=== PATIENT | female | born 1985 | race African-American/Black ===

== ENCOUNTER 2021-11-07 03:14 | Emergency (ER) | payer MEDICAID, SELFPAY ==
--- NOTE | ~2021-11-07 | XR_ITS ---
EXAMINATION: XR CHEST CLINICAL INFORMATION: Cough COMPARISON: 05/01/2021 TECHNIQUE: Frontal view of the chest was obtained. FINDINGS: The lungs are clear with no focal consolidation. No evidence of pneumothorax, pulmonary edema, or pleural effusions. The cardiomediastinal silhouette is unremarkable. No acute osseous findings. XR/XR chest 1V IMPRESSION: No acute cardiopulmonary findings.
[2021-11-07 03:34] VITALS: BP 137/80; PULSE 105; RESP 16; O2SAT 98; BMI 29.5
[2021-11-07 03:58] LABS: COVID-19 Test Positive (Negative); IDNOW Serial# 9DD0AD1C
--- NOTE | 2021-11-07 05:39 | ED.GENADULT ---
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 The patient has cough so hard that she has had 1 episode of dry heaving. She denies any diarrhea. She has had some headache and throat discomfort. She did have a recent positive COVID test but then had a negative test. She notes that she lives in [place] but has been working up here and has been looking into moving appear. She states she does not have transportation to get back to [place] and she wonders how she will quarantine Related Data Allergies Allergy/AdvReac Type Severity Reaction Status Date / Time No Known Allergies Allergy Verified 11/07/21 03:37 Review of Systems Constitutional: Constitutional: Reports chills and Reports fever(s) ENT: Reports nasal discharge and Reports sore throat Cardiovascular: Cardiovascular: Reports chest pain (Chest discomfort) and Denies dyspnea on exertion Respiratory: Respiratory: Reports cough and Denies dyspnea on exertion Neurologic: Denies Sensory deficit (Neuro) [facility] Social History Social History Advance Directives: No Advance Directives Information Provided: Yes Patient : No Physical Exam Vital Signs: Vital Signs: Last Vital Signs Pulse 105 H 11/07/21 03:34 Resp 16 11/07/21 03:34 BP 137/80 11/07/21 03:34 Pulse Ox 98 11/07/21 03:34 BMI result Body Mass Index 29.5 Const: General: cooperative, no acute distress and alert Orientation/consciousness: patient oriented x3 HENMT: Head: Yes normal to inspection Eyes: General: appearance normal, both eyes and all related structures Eyelids: Yes eyelids normal Conjunctivae: conjunctivae normal Pupils: Equal, round and reactive pupils present Neck: Neck: Yes normal visual inspection and Yes supple Chest: Chest palpation & inspection: normal inspection of the chest Resp: Effort & Inspection: normal respiratory effort Auscultation: clear to auscultation bilaterally Cardio: Rate: regular rate Rhythm: regular rhythm Heart sounds: S1 normal heart sound present, S2 normal heart sound present, no gallops, no murmurs and no rubs GI: Palpation (GI): Soft to palpation, nontender and Other GI palpation findings present (Non-distended) Auscultation: normal bowel sounds Skin: General skin exam: no rashes or lesions noted Neuro: General: patient oriented x3, no focal motor deficits and CN's II-XI intact bilaterally Cranial nerves: Yes Equal, round and reactive pupils present Cognition (Neuro): normal cognition Motor exam (neuro): 5/5 motor strength present throughout Sensory Exam: No Sensory deficit (Neuro) Extrem: General: Yes normal to inspection and Yes no pedal edema Psych: Appearance: grossly normal Affect: normal affect Medical Decision Making MDM Narrative Medical decision making narrative: Patient with COVID symptoms and a positive COVID test. Patient has had symptoms for a few days. Patient had 1 immunization with the Pfizer vaccine last summer. She is somewhat obese. Pulse oximetry is normal. Patient is safe for outpatient follow-up. Patient is being referred for antibiotic treatment, given her obesity Lab Data Lab results reviewed: Yes I reviewed the patient's lab results. Labs: Lab Results 11/07/21 Range/Units 03:30 COVID-19 ([facility]) Positive A (Negative) COVID-19 Clin Com See Note Imaging Data Chest x-ray: Radiologist's impression: IMPRESSION: No acute cardiopulmonary findings. Discharge Plan Discharge Clinical Impression: COVID-19 Patient Disposition: Home, Self-Care Instructions: COVID-19 (Coronavirus Disease 2019) (ED) Additional Instructions: Drink plenty of fluids. Quarantine for the next 10 days, after which she can stop quarantine in as long as your no longer with fever for 24 hour. Return for any new or worsened symptoms such as increased shortness of breath, fever, extreme weakness. If you wish to pursue antibody treatment, call [phone] [email or web address]
== END 2021-11-07 06:41 | disposition home or self-care (01) ==
PROVIDERS: Emergency Provider Emergency Medicine
DX: U07.1 COVID-19 (principal); R50.9 Fever, unspecified; R51.9 Headache, unspecified; R07.0 Pain in throat
CPT/HCPCS: 36415; 71045; 87635; 99283